=== PATIENT | male | born 1975 | race Two or more races ===

== ENCOUNTER 2022-02-02 11:52 | Emergency (ER) | payer MEDICAID, OTHER ==
[~2022-02-02] VITALS: Ht 175.3 cm; Wt 118.0 kg
[2022-02-02 12:13] VITALS: BP 156/73
== END 2022-02-02 17:33 | disposition left against medical advice (07) ==
LOC: ER 11:52
DX: Z53.21 Procedure and treatment not carried out due to patient leaving prior to being seen by health care provider (principal)

== ENCOUNTER 2022-03-04 14:32 | Emergency (ER) | payer MEDICAID ==
[~2022-03-04] VITALS: Ht 175.3 cm; Wt 122.0 kg
[2022-03-04] MEDS ORDERED: KETOROLAC 30MG/ML VIAL IM ONE (16:00)
[2022-03-04] MEDS ORDERED: ACETAMINOPHEN 500MG TABLET PO ONE (16:00)
[2022-03-04] MEDS ORDERED: COLCHICINE 0.6MG TABLET PO ONE (16:30)
[2022-03-04] MEDS ORDERED: COLC0.6C3 MT (16:42)
[2022-03-04] MEDS ORDERED: INDO-13 MT (16:42)
[2022-03-04 17:23] VITALS: BP 139/83
== END 2022-03-04 17:39 | disposition home or self-care (01) ==
LOC: ER 14:32
DX: M25.571 Pain in right ankle and joints of right foot (principal); M79.89 Other specified soft tissue disorders; R03.0 Elevated blood-pressure reading, without diagnosis of hypertension
CPT/HCPCS: 73610; 96372; 99283; J1885

== ENCOUNTER 2024-06-06 12:29 | Emergency (ER) | payer SELFPAY ==
[~2024-06-06] VITALS: Ht 175.3 cm; Wt 131.0 kg
[~2024-06-06 12:29] MED LIST: COLC0.6C3 MT; INDO-13 MT
[2024-06-06 12:47] VITALS: TEMP 36.8; O2SAT 98
[2024-06-06] MEDS ORDERED: COLC0.6C3 MT (14:51)
[2024-06-06] MEDS ORDERED: INDO-13 MT (14:51)
[2024-06-06] MEDS: KETOROLAC 30MG/ML VIAL IM STA (14:53)
[2024-06-06 14:56] VITALS: BP 149/97; PULSE 99; RESP 14; O2SAT 98
== END 2024-06-06 15:03 | disposition home or self-care (01) ==
LOC: ER 12:29
DX: M10.9 Gout, unspecified (principal); M79.671 Pain in right foot; Z79.899 Other long term (current) drug therapy; Z98.890 Other specified postprocedural states
CPT/HCPCS: 99283; 96372; J1885

== ENCOUNTER 2024-10-01 11:19 | Emergency (ER) | payer MEDICAID ==
[~2024-10-01] VITALS: Ht 175.3 cm; Wt 118.0 kg
[2024-10-01 11:26] VITALS: O2SAT 98
[2024-10-01] MEDS: IBUPROFEN 400MG TABLET PO ONE (12:06)
[2024-10-01] MEDS ORDERED: TOPUD MT (14:00)
[2024-10-01] MEDS ORDERED: INDO-13 MT (14:21)
[2024-10-01] MEDS ORDERED: COLC0.6C3 MT (14:21)
[2024-10-01 14:30] VITALS: BP 144/99; PULSE 90; RESP 20; TEMP 36.9; O2SAT 98
== END 2024-10-01 14:38 | disposition home or self-care (01) ==
LOC: ER 11:19
DX: M10.9 Gout, unspecified (principal); M25.531 Pain in right wrist; K40.20 Bilateral inguinal hernia, without obstruction or gangrene, not specified as recurrent; Z79.899 Other long term (current) drug therapy
CPT/HCPCS: 73110; 74176; 99284